=== PATIENT | female | born 1995 | race Caucasian/White ===

== ENCOUNTER 2023-10-03 08:00 | Outpatient (CLI) | payer OTHER ==
[2023-10-03 16:31] LABS: BILIRUBIN,URINE NEGATIVE (NEGATIVE); GLUCOSE, URINE (UA) NEGATIVE (NEGATIVE); KETONES,URINE (UA) NEGATIVE (NEGATIVE); LEUKOCYTE ESTERASE, URINE NEGATIVE (NEGATIVE); NITRITE,URINE NEGATIVE (NEGATIVE); OCCULT BLOOD,URINE NEGATIVE (NEGATIVE); PROTEIN,URINE NEGATIVE (NEGATIVE); UROBILINOGEN,URINE 0.2 (NORMAL) E.U./dL (NORMAL)
[2023-10-03 16:43] LABS: BACTERIA,URINE Moderate /HPF (None Seen); CLARITY,URINE CLEAR (CLEAR); RBC,URINE None Seen /HPF (0-5); SQUAMOUS EPITHELIAL CELL,UR FEW Squamous (<= Few); WBC,URINE 0-3 /HPF (0-5)
== END 2023-10-03 23:59 | disposition home or self-care (01) ==
LOC: LAB.WC 08:00
PROVIDERS: ATTEND Obstetrics & Gynecology
DX: Z34.90 Encounter for supervision of normal pregnancy, unspecified, unspecified trimester (principal)
CPT/HCPCS: 81001; 87086; 87181

== ENCOUNTER 2023-10-07 13:12 | Outpatient (CLI) | payer OTHER ==
[2023-10-07 13:34] LABS: BASOPHILS # (AUTO) 0.1 10^3/uL (0.0-0.1); BASOPHILS % (AUTO) 0.6 %; EOSINOPHILS # (AUTO) 0.1 10^3/uL (0.0-0.7); EOSINOPHILS % (AUTO) 1.3 %; HCT - HEMATOCRIT 38.8 % (37.0-47.0); HGB - HEMOGLOBIN 12.8 g/dL (12.0-16.0); LYMPHOCYTES # (AUTO) 1.4 10^3/uL (1.5-3.5); LYMPHOCYTES % (AUTO) 16.8 %; MEAN CORPUSCULAR HEMOGLOBIN 29.4 pg (27.0-31.0); MEAN CORPUSCULAR VOLUME 89.2 fL (81.0-99.0); MEAN PLATELET VOLUME 9.5 fL (7.9-10.8); MONOCYTES # (AUTO) 0.5 10^3/uL (0.0-1.0); MONOCYTES % (AUTO) 5.5 %; NEUTROPHILS # (AUTO) 6.4 10^3/uL (1.5-6.6); NEUTROPHILS % (AUTO) 75.6 %; PLT - PLATELET COUNT 228 10^3/uL (130-450); RED BLOOD COUNT 4.35 10^6/uL (4.20-5.40); RED CELL DISTRIBUTION WIDTH 13.2 % (12.0-15.0); WHITE BLOOD COUNT 8.5 x10^3/uL (4.8-10.8)
[2023-10-08 05:12] LABS: HBsAG SCREEN Negative (Negative); HCV AB Non Reactive (Non Reactive); HIV SCREEN 4TH GENERATION Non Reactive (Non Reactive)
[2023-10-08 08:10] LABS: RPR Non Reactive (Non Reactive)
[2023-10-08 09:09] LABS: VARICELLA-ZOSTER AB IGG 3947 index (Immune >165)
== END 2023-10-07 13:13 | disposition home or self-care (01) ==
LOC: LAB 13:12
PROVIDERS: ATTEND Obstetrics & Gynecology
DX: Z34.90 Encounter for supervision of normal pregnancy, unspecified, unspecified trimester (principal)
CPT/HCPCS: 36415; 85025; 86592; 86762; 86787; 86803; 86850; 86900; 86901; 87340; 87389

== ENCOUNTER 2023-10-17 12:34 | Outpatient (CLI) | payer OTHER ==
--- NOTE | 2023-10-17 14:30 | Ultrasound Report ---
PROCEDURE: OB First Trimester INDICATIONS: POSITIVE TEST OUTSIDE/PRIOR DATING DATA: Last menstrual period (LMP): 08/15/2023. LMP-based estimated date of delivery (RAYRAY): 05/11/2024. First dating scan (date and location): 10/17/2023. Estimated date of delivery (RAYRAY) from first dating scan: 05/22/2024. TECHNIQUE: Real-time scanning was performed of the fetus and maternal pelvic organs, with image documentation. COMPARISON: None. FINDINGS: Intrauterine gestational sac present. Embryo: Shaw-rump length measures 2.16 cm, consistent with 8 weeks and 6 days. Heart rate: 167 bpm. Other: No perigestational fluid collection. Yolk sac is present. Measurement variability in dating: +/- 4 weeks by LMP, +/- 7 days by mean sac diameter (use before 6 weeks gestation if crown-rump length not able to be measured), +/- 5 days by crown-rump length (6-12 weeks gestation). Maternal organs: Left ovary is not seen.. Right ovary corpus luteal cyst measuring 1.5 cm. IMPRESSION: Single live intrauterine consistent with 8 weeks and 6 days. Reviewed by: Robert Acevedo MD on 10/17/2023 2:28 PM PST Approved by: Robert Acevedo MD on 10/17/2023 2:28 PM PST Station ID: [id number]
== END 2023-10-17 12:35 | disposition home or self-care (01) ==
LOC: DI 12:34
PROVIDERS: ATTEND Obstetrics & Gynecology
DX: Z34.91 Encounter for supervision of normal pregnancy, unspecified, first trimester (principal)

== ENCOUNTER 2023-11-07 08:00 | Outpatient (CLI) | payer OTHER ==
[2023-11-07 19:47] LABS: CHLAMYDIA TRACHOMATIS DNA NEGATIVE (NEGATIVE); NEISSERIA GONORRHOEAE DNA NEGATIVE (NEGATIVE); TRICHOMONAS VAGINALIS DNA NEGATIVE (NEGATIVE)
== END 2023-11-07 23:59 | disposition home or self-care (01) ==
LOC: LAB.WC 08:00
PROVIDERS: ATTEND Obstetrics & Gynecology
DX: Z11.3 Encounter for screening for infections with a predominantly sexual mode of transmission (principal)
CPT/HCPCS: 87491; 87591; 87661

== ENCOUNTER 2023-11-14 08:00 | Outpatient (CLI) | payer OTHER ==
[2023-11-14 18:41] LABS: BILIRUBIN,URINE NEGATIVE (NEGATIVE); GLUCOSE, URINE (UA) NEGATIVE (NEGATIVE); KETONES,URINE (UA) NEGATIVE (NEGATIVE); LEUKOCYTE ESTERASE, URINE NEGATIVE (NEGATIVE); NITRITE,URINE NEGATIVE (NEGATIVE); OCCULT BLOOD,URINE TRACE-INTA (NEGATIVE); PROTEIN,URINE NEGATIVE (NEGATIVE); UROBILINOGEN,URINE 0.2 (NORMAL) E.U./dL (NORMAL)
[2023-11-14 19:24] LABS: CLARITY,URINE CLEAR (CLEAR)
[2023-11-14 19:25] LABS: BACTERIA,URINE Rare /HPF (None Seen); RBC,URINE 0-5 /HPF (0-5); SQUAMOUS EPITHELIAL CELL,UR RARE Squamous (<= Few); WBC,URINE 0-3 /HPF (0-5)
== END 2023-11-14 23:59 | disposition home or self-care (01) ==
LOC: LAB.WC 08:00
PROVIDERS: ATTEND Nurse Practitioner
DX: R82.90 Unspecified abnormal findings in urine (principal)
CPT/HCPCS: 81001; 87086

== ENCOUNTER 2024-02-28 10:00 | Outpatient (CLI) | payer OTHER ==
[2024-02-28 11:10] LABS: HCT - HEMATOCRIT 36.3 % (37.0-47.0); HGB - HEMOGLOBIN 11.4 g/dL (12.0-16.0); MEAN CORPUSCULAR HEMOGLOBIN 27.3 pg (27.0-31.0); MEAN CORPUSCULAR HGB CONC 31.4 g/dL (32.0-36.0); MEAN CORPUSCULAR VOLUME 87.1 fL (81.0-99.0); MEAN PLATELET VOLUME 9.6 fL (7.9-10.8); RED BLOOD COUNT 4.17 10^6/uL (4.20-5.40); RED CELL DISTRIBUTION WIDTH 12.5 % (12.0-15.0); WHITE BLOOD COUNT 8.1 x10^3/uL (4.8-10.8)
== END 2024-02-28 10:01 | disposition home or self-care (01) ==
LOC: LAB 10:00
PROVIDERS: ATTEND Obstetrics & Gynecology
DX: Z34.90 Encounter for supervision of normal pregnancy, unspecified, unspecified trimester (principal)
CPT/HCPCS: 36415; 82950; 85027

== ENCOUNTER 2024-04-08 09:59 | Outpatient (CLI) | payer OTHER ==
--- NOTE | 2024-04-09 07:11 | Ultrasound Report ---
PROCEDURE: OB Follow up INDICATIONS: UTERINE SIZE DATE DISCREPENCY OUTSIDE/PRIOR DATING DATA: Last menstrual period (LMP): 08/15/2023. LMP-based estimated date of delivery (RAYRAY): 05/11/2024. First dating scan (date and location): 10/17/2023 . Estimated date of delivery (RAYRAY) from first dating scan: 05/22/2024. The below data below was generated using the ultrasound RAYRAY of 05/22/2024 TECHNIQUE: Real-time scanning was performed of the fetus, with image documentation and biometric measurements. Endovaginal scanning: Not performed. COMPARISON: OB ultrasound 01/07/2024, 10/17/2023 FINDINGS: General: A single living intrauterine gestation is present. Presentation: Vertex Placenta: Placental position is posterior, without previa. Amniotic fluid index: 13.7 cm, within normal limits for gestational age. heart rate: 148 beats per minute. Maternal cervical canal: 5.8 cm long; normal length is 2.5 cm or more. biometrics: Biparietal diameter: 8.2 cm Head circumference: 29.6 cm Abdominal circumference: 29.7 cm Femur length: 6.1 cm Estimated gestational age from initial scan: 33 weeks, 5 days Composite gestational age from present scan: 33 weeks, 0 days Estimated weight and percentile: 2112.8 g, 24.5 percentile Measurement variability in biometric dating: +/- 10 days from 12-20 weeks gestation, +/- 2 weeks from 20-30 weeks gestation, +/- 3 weeks at 30 weeks gestation or more. Other: Not applicable. IMPRESSION: Single intrauterine gestation in vertex presentation with estimated gestational age of 33 weeks, 0 da ys based on biometry. Estimated weight and 24.5 percentile Reviewed by: Shirley Rasheed MD, PhD on 04/09/2024 7:09 AM PDT Approved by: Shirley Rasheed MD, PhD on 04/09/2024 7:09 AM PDT Station ID: [id number]
== END 2024-04-08 10:00 | disposition home or self-care (01) ==
LOC: DI 09:59
PROVIDERS: ATTEND Obstetrics & Gynecology
DX: O26.843 Uterine size-date discrepancy, third trimester (principal); Z3A.33 33 weeks gestation of pregnancy

== ENCOUNTER 2024-04-23 08:00 | Outpatient (CLI) | payer OTHER | END 2024-04-23 23:59 | disposition home or self-care (01) | LOC: LAB.WC 08:00 | PROVIDERS: ATTEND Nurse Practitioner | DX: Z36.85 Encounter for antenatal screening for Streptococcus B (principal) | CPT/HCPCS: 87081; 87181; 87797 ==

== ENCOUNTER 2024-05-15 15:32 | Inpatient (IN) | payer OTHER ==
[2024-05-15 16:29] LABS: BASOPHILS % (AUTO) 0.3 %; EOSINOPHILS # (AUTO) 0.1 10^3/uL (0.0-0.7); EOSINOPHILS % (AUTO) 1.1 %; HCT - HEMATOCRIT 34.7 % (37.0-47.0); HGB - HEMOGLOBIN 10.7 g/dL (12.0-16.0); LYMPHOCYTES # (AUTO) 1.9 10^3/uL (1.5-3.5); LYMPHOCYTES % (AUTO) 19.8 %; MEAN CORPUSCULAR HGB CONC 30.8 g/dL (32.0-36.0); MEAN PLATELET VOLUME 10.2 fL (7.9-10.8); MONOCYTES # (AUTO) 0.5 10^3/uL (0.0-1.0); MONOCYTES % (AUTO) 5.5 %; NEUTROPHILS # (AUTO) 6.8 10^3/uL (1.5-6.6); PLT - PLATELET COUNT 291 10^3/uL (130-450); RED BLOOD COUNT 4.45 10^6/uL (4.20-5.40); RED CELL DISTRIBUTION WIDTH 14.1 % (12.0-15.0); WHITE BLOOD COUNT 9.3 x10^3/uL (4.8-10.8)
[2024-05-15] MEDS: miSOPROStoL 100 MCG TABLET VG SCH (17:09)
[2024-05-15] MEDS ORDERED: TRANEXAMIC ACID IN NACL 1,000 MG/100 ML BAG IV PRN (18:08)
[2024-05-15] MEDS ORDERED: miSOPROStoL 200 MCG TABLET BC PRN (18:08)
[2024-05-15] MEDS ORDERED: OXYTOCIN/SODIUM CHLORIDE 500 ML IV PRN (18:08)
[2024-05-15] MEDS ORDERED: METHYLERGONOVINE 0.2 MG/ML VIAL IM PRN (18:08)
[2024-05-15] MEDS ORDERED: ONDANSETRON 4 MG/2 ML VIAL IVP PRN ×2 (18:08→19:45)
[2024-05-15] MEDS ORDERED: lidocaine 1% 20 ML MDV ID PRN (18:08)
[2024-05-15] MEDS ORDERED: SODIUM CHLORIDE FLUSH 0.9% 10 ML SYRINGE IVP PRN (18:08)
[2024-05-15] MEDS ORDERED: OXYTOCIN 10 UNIT/ML VIAL IM PRN (18:08)
[2024-05-15] MEDS ORDERED: CARBOPROST TROMETHAMINE 250 MCG/ML VIAL IM PRN (18:08)
--- NOTE | 2024-05-15 18:34 | HISTORY & PHYSICAL EXAMINATION ---
Admit History - Visit Reason Visit Reason: Other (Term gestation, elective induction of labor) - : 3 Parity: 2 Premature: 0 Ectopic: 0 : 0 Care: positive: [facility] Risk/History: positive: None Complications This : positive: None Smoking Status: Never smoker - Mother's Labs Mother's Blood Type: positive: A Mother's RH: positive: Positive GBS: positive: Group B Strep Positive Rubella Status: positive: Immune - Other Maternal History Other Maternal History: HPI: This 29 yo @ 39+1 weeks by LMP and confirmed by 8+6 week ultrasound. She desires elective induction of labor. She has been a patient of [facility] for the duration of her . Her which has remained uncomplicated with the exception of mild anemia. Denies Headache, visual changes or right upper quadrant abdominal pain. Denies urinary urgency or dysuria. Denies any nausea or vomiting. ROS: All other symptoms reviewed and were negative except per HPI. LMP: 08/15/2023 RAYRAY by LMP: 05/11/2024 Initial US Date 10/17/2023, US Age 8 weeks 6 days, RAYRAY by ultrasound: 05/22/2023 Final RAYRAY: 05/22/2024 by 8-week ultrasound serial Exams agree OB Hx: G1: Delivery date: 03/21/2014 Weeks Gestation: 40.4 Delivery type: Sex: Male weight: [id number] G2: Delivery date: 12/22/2017 Weeks Gestation: 39.3 Delivery type: Sex: Male weight: [id number] Medical Hx: No significant Surgical Hx: None Social Hx: Monogamous with male partner.. Denies current use of alcohol, tobacco, marijuana or other recreational drugs. Family Hx: Denies family history of congenital anomalies, Cystic Fibrosis or chromosomal abnormalities Recent BP: 136/76 Lab: H&H 10.7/34.7% Total maternal weight gain: 34.4# Yasp-hgou-ozyz-Dates: -04/08/2024 us: 2112.8 g, 24.5 percentile Pre- Weight:143 BMI: 26.25 Blood type: A+ Antibody: Negative CBC: H/H: 12.8/38.8, platelets: 228 RUB:Immune VZV: immune HBsAg: negative HepC: Non-reactive RPR/AB-EIA:on-reactive HIV:on-reactive PAP:08/07/23 Normal GC/CT: negative HSV: Denies in self and partner Genetic testing: Declined Covid: Declined Flu: Declined FAS Placenta:posterior w/o previa Cord: 3VC YOLI: Normal EFW: 356g 24th%ile 50gm OGCT: 123 TDAP:Declined 02/26 Breast Pump:02/26 3rd trimester H/H 11.4/36.3 PLT 231 GBS: 04/23/2024 - POSITIVE Physical exam: Normocephalic, atraumatic Heart RRR w/o M/G/R Lungs CTAB Abdomen gravid, soft, nontender. EFW 3400 FHR baseline 130's, moderate variability, + accelerations, no decelerations Single contraction palpated, mildly, soft resting tone Difficult cervical exam, likely unchanged from clinic 05/13/2024 appointment: 050/-3 posterior, intact membranes. Bilateral LE's no edema Mood is good. Assessment: 29 yo @ 39+1 weeks gestation by 8+6 wk U/S Desires elective induction of labor. FHR 130's, Cat I GBS Positive Plan: Admit to [facility] for elective induction of labor at 39+1 weeks gestation. Will begin with cervical ripening, misoprostol Begin GBS prophylaxis- ampicillin. Continuous monitoring Jacuzzi PRN. Nitrous oxide PRN. Epidural PRN Maternal Request. Anticipate . 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 (Radha Huntley) - HPI Current EDU 05/21/24 Gestation 39 Weeks and 1 Days 3 Vital Signs Temperature 97.9 F 05/15/24 15:57 Heart Rate 98 05/15/24 15:57 Respiratory Rate 16 05/15/24 15:57 Blood Pressure 136/76 H 05/15/24 15:57 Temperature 97.9 F 05/15/24 15:57 Heart Rate 98 05/15/24 15:57 Respiratory Rate 16 05/15/24 15:57 Blood Pressure 136/76 H 05/15/24 15:57 O2 Saturation If not protocol: Oxygen Flow, liters/minute Meds/Allgy - Home Medications Home Medications: Ambulatory Orders Medication Instructions Recorded Confirmed Vit No.129/Iron/Folic 1 each PO ONCE 05/15/24 05/15/24 [ Tablet] - Allergies Allergies/Adverse Reactions: Allergies Allergy/AdvReac Type Severity Reaction Status Date / Time No Known Drug Allergies Allergy Verified 05/15/24 18:55 Physical - Abdominal Exam Vital Signs: Temp Pulse Resp BP Pulse Ox O2 Flow Rate 97.9 F 98 16 136/76 H 05/15/24 15:57 05/15/24 15:57 05/15/24 15:57 05/15/24 15:57 Plan for Labor - Plan For Labor I expect patient to be DC'd or transferred within 96 hours.: Yes - Plan For Labor Plan for Labor: agree with Above. Miso for induction. anticipate . I have evaluated patient as well and reviewed and signed consents with her for labor induction. my cervical exam at 5 pm - I could not reach the cervix. (Milana Vaz)
[2024-05-15] MEDS: AMPICILLIN 2 GM in SODIUM CHLORIDE 0.9% MINIBAG 100 ML IV ONE (18:41)
[2024-05-15] MEDS: LACTATED RINGERS 1,000 ML IV SCH (18:45)
[2024-05-15] MEDS ORDERED: NALBUPHINE 10 MG/ML AMP IVP PRN (19:45)
[2024-05-15] MEDS ORDERED: METOCLOPRAMIDE 10 MG/2 ML VIAL IVP PRN (19:45)
[2024-05-15] MEDS ORDERED: diphenhydrAMINE INJ 50 MG/ML VIAL IVP PRN (19:45)
[2024-05-15] MEDS ORDERED: NALOXONE 0.4 MG/ML VIAL IVP PRN (19:45)
[2024-05-15] MEDS ORDERED: ROPIVACAINE 0.2% 200 MG/100 ML BAG EP PRN (19:45)
--- NOTE | 2024-05-15 19:45 | ANESTHESIA ---
Pre-Anesthesia VS, & Labs - Diagnosis labor pain - Procedure labor epidural Vital Signs: Temp Pulse Resp BP Pulse Ox O2 Flow Rate 36.6 C 98 16 136/76 H 05/15/24 15:57 05/15/24 15:57 05/15/24 15:57 05/15/24 15:57 Height: 5 ft 2 in Weight (kg): 79.379 kg Body Mass Index: 32.0 BMI Classification: Obese - NPO Other - Is Patient ?: Yes - Lab Results Current Lab Results: Laboratory Tests 05/15/24 16:15: WBC 9.3, RBC 4.45, Hgb 10.7 L, Hct 34.7 L, MCV 78.0 L, MCH 24.0 L, MCHC 30.8 L, RDW 14.1, Plt Count 291, MPV 10.2, Neut # (Auto) 6.8 H, Lymph # (Auto) 1.9, [place] # (Auto) 0.5, Eos # (Auto) 0.1, Baso # (Auto) 0.0, Absolute Nucleated RBC 0.00, Nucleated RBC % 0.0 05/15/24 16:15: Blood Type A POSITIVE, Antibody Screen NEGATIVE Fish Bones: 05/15/24 16:15 Home Medications and Allergies Home Medications: Ambulatory Orders Vit No.129/Iron/Folic [ Tablet] 1 each PO ONCE 05/15/24 Active Medications Carboprost Tromethamine (Carboprost Tromethamine 250 Mcg/Ml Vial) 250 mcg IM Q 15M PRN PRN Reason: Step 4: Hemorrhage protocol Lactated Ringer's (Lr) 1,000 mls @ 100 mls/hr IV .Q10H NANY Last Admin: 05/15/24 18:45 Dose: 100 mls/hr Oxytocin/Sodium Chloride (Pitocin/Sodium Chloride) 500 mls @ 999 mls/hr IV PRN PRN; Protocol PRN Reason: POST- HEMORR PREVENTION Stop: 05/20/24 18:09 Tranexamic Acid (Tranexamic 1,000 Mg/100ml-Nacl) 1,000 mg in 100 mls @ 600 mls/hr IV .ONCE PRN PRN Reason: EBL >1200mL and within 3hr Stop: 05/20/24 18:09 Ampicillin Sodium 1 gm/ Sodium (Chloride) 100 mls @ 200 mls/hr IV Q4H [facility] Lidocaine HCl (Lidocaine 1% 20 Ml Mdv) 20 ml ID .ONCE PRN PRN Reason: PERINEAL REPAIR Stop: 05/20/24 18:09 Methylergonovine Maleate (Methylergonovine 0.2 Mg/Ml Vial) 0.2 mg IM .ONCE PRN PRN Reason: Step 2: Hemorrhage protocol Stop: 05/20/24 18:09 Misoprostol (Misoprostol 100 Mcg Tablet) 25 mcg VG Q4H NANY Last Admin: 05/15/24 17:09 Dose: 25 mcg Misoprostol (Misoprostol 200 Mcg Tablet) 800 mcg BC .ONCE PRN PRN Reason: Step 3: Hemorrhage protocol Stop: 05/20/24 18:09 Ondansetron HCl (Ondansetron 4 Mg/2 Ml Vial) 4 mg IVP Q4HR PRN PRN Reason: Nausea / Vomiting Oxytocin (Oxytocin 10 Unit/Ml Vial) 10 unit IM .ONCE PRN PRN Reason: Step one: If no IV access Stop: 05/20/24 18:09 Sodium Chloride (Sodium Chloride Flush 0.9% 10 Ml Syringe) 10 ml IVP 0100,0900,1700 [facility] Sodium Chloride (Sodium Chloride Flush 0.9% 10 Ml Syringe) 10 ml IVP PRN PRN PRN Reason: NEEDED PER PROVIDER ORDERS Vit No.129/Iron/Folic [ Tablet] 1 each PO ONCE 05/15/24 Allergies/Adverse Reactions: Allergies Allergy/AdvReac Type Severity Reaction Status Date / Time No Known Drug Allergies Allergy Verified 05/15/24 18:55 Anes History & Medical History - Anesthetic History Anesthesia Complications: reports: No previous complications Family history of Anesthesia Complications: Denies Family history of Malignant Hyperthermia: Denies - Medical History Cardiovascular: reports: None Pulmonary: reports: None Smoking Status: Never smoker - Obstetrical History : 3 Parity: 2 Events: reports: None Complications: reports: None Exam General: Alert, Oriented x3, Cooperative Dental: WNL Mouth Openin Fingerbreadth Neck Mobility: Normal Mallampati classification: II Thyromental Distance: 4-6 cm Respiratory: Lungs clear Cardiovascular: Regular rate Plan Anesthesia Type: Epidural Consent for Procedure(s) Verified and Reviewed: Yes Code Status: Attempt Resuscitation ASA classification: 2-Mild systemic disease Is this case an emergency?: No
[2024-05-15] MEDS: AMPICILLIN 1 GM in SODIUM CHLORIDE 0.9% MINIBAG 100 ML IV SCH (23:10)
[2024-05-16] MEDS: OXYTOCIN/SODIUM CHLORIDE 500 ML IV SCH (00:45)
[2024-05-16] MEDS ORDERED: SODIUM CHLORIDE FLUSH 0.9% 10 ML SYRINGE IVP SCH (01:00)
[2024-05-16] MEDS ORDERED: LIDOCAINE 2%-EPI 1:100000 20 ML MDV ONE (05:46)
--- NOTE | 2024-05-16 06:32 | PROVIDER PROGRESS NOTE ---
<Radha Huntley - Last Filed: 05/16/24 06:32> Labor Progress Note - Uterine Monitoring Uterine Monitoring Mode: positive: External toco Contraction Frequency (min/apart): q2-4 Contraction Intensity: positive: Moderate to strong Uterine Resting Tone: positive: Soft - Monitoring Monitor Mode: positive: External ultrasound Heart Rate Baseline: 140's Heart Rate Variability: positive: Moderate (6-25 bmp) Accelerations: positive: Present, 15x15 Decelerations: positive: None Strip Review: positive: Category I - Labor Progress Note Labor Progress Note/Additional Text: S: Just received epidural. Comfort now increasing. Mood is good. Feels well informed. supportive at bedside . O: FHR 140s, + accelerations, - significant decelerations thomas q 2-3 minutes, moderate, resting tone soft. Oxytocin @ 8mu/min Recent SVE by RN, essentially unchanged from previous exam (1.5cm, posterior) A: 29 yo @ 39+ 2 Ongoing term elective induction of labor. S/P misoprosol x1 for cervical ripening immediately s/p epidural placement GBS positive, prophylaxis ongoing. P: Continue to titrate oxytocin for adequate labor pattern Continue ampicillin for GBS prophylaxis per protocol. maintain epidural Will encouraged RN assisted positional changes in bed on peanut ball Anticipate . MARTA Cotton, Student Nurse Cyber Incident Handler <Milana Vaz - Last Filed: 05/16/24 18:37> Labor Progress Note - Labor Progress Note Labor Progress Note/Additional Text: agree with above.
--- NOTE | 2024-05-16 08:47 | PROVIDER PROGRESS NOTE ---
Subjective - Subjective Subjective: comfortable with epidural but not thomas much at all now. Pitocin at 12 Objective - Vital Signs/Intake & Output Reviewed Vital Signs: Yes Vital Signs: FHT category 1 Intake & Output: Intake & Output 05/13/24 05/14/24 05/15/24 05/16/24 23:59 23:59 23:59 23:59 Intake Total 100 1283.199 Balance 100 1283.199 - Objective General Appearance: positive: No acute distress Abdomen: positive: Non-tender Comments/Other: cervix 60/-3 still pretty firm - Lab Results Fish Bones: 05/15/24 16:15 Other Labs: Lab Results x24hrs 05/15/24 05/15/24 Range/Units 16:15 16:15 WBC 9.3 (4.8-10.8) x10^3/uL RBC 4.45 (4.20-5.40) 10^6/uL Hgb 10.7 L (12.0-16.0) g/dL Hct 34.7 L (37.0-47.0) % MCV 78.0 L (81.0-99.0) fL MCH 24.0 L (27.0-31.0) pg MCHC 30.8 L (32.0-36.0) g/dL RDW 14.1 (12.0-15.0) % Plt Count 291 (130-450) 10^3/uL MPV 10.2 (7.9-10.8) fL Neut # (Auto) 6.8 H (1.5-6.6) 10^3/uL Lymph # (Auto) 1.9 (1.5-3.5) 10^3/uL [place] # (Auto) 0.5 (0.0-1.0) 10^3/uL Eos # (Auto) 0.1 (0.0-0.7) 10^3/uL Baso # (Auto) 0.0 (0.0-0.1) 10^3/uL Absolute Nucleated RBC 0.00 x10^3/uL Nucleated RBC % 0.0 /100WBC Blood Type A POSITIVE Antibody Screen NEGATIVE Assessment/Plan - Problem List (1) Encounter for elective induction of labor Impression: still not really in labor. comfortable with epidural. AROM done and clear fluid. will increase pitocin as needed. baby is reassuring
[2024-05-16] MEDS: ePHEDrine 50 MG/ML VIAL IVP PRN (09:30)
--- NOTE | 2024-05-16 10:01 | PROVIDER PROGRESS NOTE ---
Labor Progress Note - Uterine Monitoring Uterine Monitoring Mode: positive: External toco Contraction Frequency (min/apart): 2-2.5 Contraction Intensity: positive: Strong Uterine Resting Tone: positive: Soft - Monitoring Monitor Mode: positive: Spiral electrode Heart Rate Baseline: 120 Heart Rate Variability: positive: Moderate (6-25 bmp) Accelerations: positive: Present, 15x15 Decelerations: positive: Early, Prolonged (>2x10 min) Strip Review: positive: Category II - Vaginal Exam Dilation (in cm): 7 Effacement (%): 100 Station: 1 - Labor Progress Note Labor Progress Note/Additional Text: S: Nursing team at bedside following prolonged FHR deceleration following hypotensive event. Difficulty tracing heart rate vs maternal heart rate. Patient verbally consents to FSE placement. O: FHR baseline 120, min-moderate variability, + accels, early and prolonged decelerations. 10 minute period or prolonged heart rate declerations to the 80's/90's. Intrauterine resuscitative measures by RN team. Dr. Vaz called to bedside. Contractions palpate mild intermittently with soft resting tone. SVE 7/100/+1, Vertex. Membranes ruptured/clear. S/p misoprostol x1 dose Oxytocin now at at 14mu/min. A: 29yo @ 39+2wks gestation by 1st trimester ultrasound. Elective IOL FSE placed secondary to prolonged deceleration and maternal vs heart tracing. rapid change to cervical dilation and advancing station FHR 120, Category II GBS, positive P: Continue oxytocin titration to achieve adequate uterine activity. Continuous monitoring. maintain epidural for maternal labor anesthesia. encourage rotations in bed on [employer] ball Reviewed plan of care with oncall physician Anticipate soon. MARTA Cotton, Student Nurse Correspondence Analyst
[2024-05-16] MEDS ORDERED: WITCH HAZEL/GLYCERIN 1 PAD TOP PRN (11:12)
[2024-05-16] MEDS ORDERED: HYDROCORTISONE 1% CREAM 28 GM TUBE PR PRN (11:12)
--- NOTE | 2024-05-16 11:19 | DELIVERY NOTE ---
<Radha Huntley - Last Filed: 05/16/24 11:56> Delivery Note - Labor Labor: positive: Augmented by ARM, Induced by oxytocin - Delivery Method Infant Delivery Method: positive: Spontaneous vaginal delivery - Cervical Ripening Method Cervical Ripening Method: positive: Misoprostil - Presentation Presentation: positive: Vertex, NILO - right occiput anterior - Nuchal Cord Nuchal Cord: positive: None - Anesthetic Anesthetic Type: - Amniotic Fluid Description Amniotic Fluid Description: positive: Clear - Episiotomy Type Episiotomy Type: positive: None - Laceration Laceration: positive: None - Delivery Outcome Delivery Outcome: positive: Livebirth - Jackhorn Jackhorn: positive: Placed in direct skin contact with mother, Bulb syringe, Stimulated, Warmed, Everetts used Jackhorn sex: positive: Male - Cord Cord: positive: 3 vessels - Placenta Placenta: positive: Intact - Estimated Blood Loss Estimated Blood Loss (in cc): 250 - Post Delivery Events Post Delivery Events: positive: No post delivery events - Delivery Comments (Free Text/Narrative) Delivery Comments (Free Text/Narrative): This 29 -year-old, G 3P 2 @ 39+2 weeks gestation by sure LMP and confirmed by 8+6 week ultrasound presented to L&D yesterday late afternoon for elective induction at term gestation. At the time of her admission her cervix was posterior and unreachable. GBS positive, treated x 4 doses. Induction began with cervical ripening MISOPROSTOL 50 mcg BC, followed by OXYTOCIN (MAXIMUM INFUSION OF 14 mu/Min) and AROM @0830 (clear). FHR pattern demonstrated primarily category I tracing (with intermittent category II) and FHT 120's baseline prior to second stage. Rapid dilation and descent after AROM. Epidural placed upon maternal request. She then progressed to complete/complete and second stage began at 10:25. : Normal spontaneous vaginal delivery of a viable male infant on 05/16/2024 @ 1054. No nuchal cord. The was placed on maternal abdomen, stimulated, dried and placed skin to skin. Apgars 8 @ 1 min, and 9 @ 5 minutes. The umbilical cord was allowed to stop pulsating at which time it was doubly clamped by delivering provider and cut by FOB. 3VC. Cord blood was obtained. Third Stage: Fundal massage and gently cord traction applied for active management of the third stage, placenta delivered spontaneously and intact @ 11:00. EBL 250cc. Placenta was WAS NOT sent to pathology. 30u Pitocin administered via IV for hemostasis and allowed to run freely. Uterine massage wa s performed until uterus was deemed firm. Fourth stage: Uterine fundus firm and there is no excessive bleeding. The perineum, vagina and cervix were inspected and found to be intact. Family bonding well. Both mother and baby are in stable condition. 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 MARTA Cotton, Student Nurse Global Marketing Specialist <Milana Vaz - Last Filed: 05/16/24 18:36> Delivery Note - Delivery Comments (Free Text/Narrative) Delivery Comments (Free Text/Narrative): I was present with Radha for delivery of Elizabeth's baby. I agree with above except that she had misoprostol 25 mcg vaginally.
[2024-05-16] MEDS: IBUPROFEN 800 MG TABLET PO SCH (12:21)
[2024-05-16] MEDS: ACETAMINOPHEN 500 MG TABLET PO SCH (12:21)
[2024-05-17 05:00] VITALS: BP 96/57; O2SAT 98
--- NOTE | 2024-05-17 11:45 | DISCHARGE SUMMARY ---
<Radha Huntley - Last Filed: 05/17/24 13:08> Discharge Summary Admit Date: 05/15/24 Discharge Date: 05/17/24 Discharging Provider: Dr. Vaz Code Status: Attempt Resuscitation Condition at Discharge: Good Discharge Disposition: 01 Home, Self Care - HOSPITAL COURSE Hospital Course: Date of Admission: 05/15/2024 Date of Discharge: 05/17/2024 Diagnosis on admission: 1. 29 -year-old, G 3P 2 @ 39+2 weeks gestation by sure LMP and confirmed by 8+6 week ultrasound 2. Elective induction of labor 3. GBS positive Diagnosis on Discharge 1. 29 year old, 2. S/P vaginal delivery 3. PP day #1 4. Intact perineum 5. Exclusively Brief History: She is a patient of [facility] who presented on 05/15/2024 for elective induction of labor. She has been a patient of [facility] for the duration of her course. She spontaneously delivered a viable female apgars 8 and 9 at 1 and 5 minutes respectively. EBL 250 ml. intact perineum. She has been doing well in her course. She is ambulating and tolerating a regular diet. She is urinating without difficulty and her lochia is normal. Her pain is well controlled without narcotic management. She will be discharged to home today on day 1 and encouraged to continue PRN IBU, tylenol and colace. Will ask clinic to call and have Elizabeth scheduled for follow-up by phone for 1 week visit. She has been given precautions to call if she has any any new or worsening sx such as fevers, chills, abdominal pain, increasing bleeding, or foul smelling vaginal lochia. preeclamptic precautions reviewed as well. MARTA Cotton, Student Nurse Supervisor [address] - ALLERGIES Allergies/Adverse Reactions: Allergies Allergy/AdvReac Type Severity Reaction Status Date / Time No Known Drug Allergies Allergy Verified 05/15/24 18:55 - MEDICATIONS Home Medications: Ambulatory Orders Medication Instructions Recorded Confirmed Vit No.129/Iron/Folic 1 each PO ONCE 05/15/24 05/15/24 [ Tablet] - PHYSICAL EXAM AT DISCHARGE General Appearance: positive: No acute distress Eyes Bilateral: positive: Normal inspection Respiratory: positive: No respiratory distress Peripheral Pulses: positive: 2+ Abdomen: positive: Non-tender Skin: positive: Color nml Extremities: positive: Non-tender Neurologic/Psychiatric: positive: Oriented x3 - LABS Result Diagrams: 05/15/24 16:15 - QUALITY (Female Hip Fx Only) Was patient sent home on osteoporosis medication?: No - FOLLOW UP Follow Up: 1 week telehealth with [facility]. <Milana Vaz - Last Filed: 05/17/24 21:36> Discharge Summary - LABS Result Diagrams: 05/15/24 16:15 - FOLLOW UP Follow Up: Agree with above. I saw and examined patient with Radha. JONA
--- NOTE | 2024-05-17 11:47 | Discharge Plan ---
Discharge Plan Problem Reviewed?: Yes Disposition: Home, Self Care Activity Restrictions: No Restrictions Instruction Topics: Breastfeed How To, Self Care, Vaginal Additional Instructions or Follow Up instructions: Follow-up one week with [facility]. No Smoking: If you smoke, Please STOP! Call for help. Follow-up with: Milana Vaz MD [Provider Admit Priv/Credential] -
--- NOTE | 2024-05-17 14:48 | Labor Flowsheet ---
Labor Flowsheet Datetime Report Generated by CPN: 05/17/2024 14:47 Datetime: 05/17/2024 08:46 VITAL SIGNS NBP Sys/Daysi/Mean (mmHg): 115 : 68 : 77 Pulse: 89 Datetime: 05/16/2024 13:00 Stage of : Datetime: 05/16/2024 12:15 Respirations: 16 Datetime: 05/16/2024 11:22 Temperature (C): 36.8 Temperature Route: Oral Datetime: 05/16/2024 11:11 LaborFlag: Labor Datetime: 05/16/2024 10:55 SpO2 (%): 97 Datetime: 05/16/2024 10:50 UTERINE ACTIVITY Monitor Mode: External Monitor Interventions for UA: [place] Adjusted Datetime: 05/16/2024 09:51 Comments: FSE replaced VAGINAL EXAM Dilatation (cm): 7.0 Effacement (%): 100 Station: 1 Exam by: Dr. Vaz Datetime: 05/16/2024 09:49 Strip Reviewed by: Dr. Vaz Provider Notified (Name): Dr. Vaz Communication Comments: Dr. Vaz at bedside Datetime: 05/16/2024 09:47 Monitor Interventions for FHR: FSE Applied Datetime: 05/16/2024 09:42 Actions for Decelerations: Side to Side; IV Bolus; Blood Pressure; Provider Notified Datetime: 05/16/2024 09:39 COMMUNICATION Communication: RN at Bedside; RN Reviewed Strip; Call/Page Placed to Provider Datetime: 05/16/2024 08:01 MEDICATIONS Pitocin (milliunits): Increased to @ 12 Patient Position/Activity: Right Lateral Datetime: 05/16/2024 08:00 Frequency (min): 2-4 Quality: Moderate Duration (sec): 80-90 Pattern: Normal: <= 5 Contractions in 10 Minutes Resting Tone (Palpate): Relaxed Pitocin Checklist: At Least 1 Acceleration of 15 bpm x 15 Seconds in 30 Minutes or Adequate Variabi lity; No More than 1 Late Deceleration Occurred in Past 30 Minutes; No More than 2 Variable Decelerat ions > 60 Seconds in Duration and decreasing >60 bpm in 30 minutes; No More than 5 Uterine Contractio ns in 10 Minutes for any 20 Minute Interval; Uterus Palpates Soft between Contractions ASSESSMENT A Monitor Mode: External US FHR Baseline Rate : 120 Datetime: 05/16/2024 07:30 FHR Baseline Changes: No Baseline Change Variability: Moderate 6-25 bpm Accelerations: 15X15 Decelerations: None Datetime: 05/16/2024 06:22 Category: Category I Datetime: 05/16/2024 06:19 Pain Relief Measures: Epidural Given PATIENT CARE Oxygen Method: Room Air Datetime: 05/16/2024 06:14 Epidural Procedure Other: Pump Started Datetime: 05/16/2024 06:10 Epidural Positioning: Side Lying Datetime: 05/16/2024 06:05 Epidural Procedure: Test Dose Datetime: 05/16/2024 05:56 PROCEDURE TIME OUT Procedure Type: 0554 Datetime: 05/16/2024 05:51 Procedure Verify: Correct Patient Identity; Correct Side and Site are Marked; Accurate Procedure Co nsent Form; Agreement on Procedure to be Done; Correct Patient Position; Safety Precautions Based on Patient History or Medication Use Datetime: 05/16/2024 05:50 Patient Care Comments: sitting up for epidural Datetime: 05/16/2024 05:48 ANESTHESIA Anesthesia Plans: Epidural Datetime: 05/16/2024 05:43 Pain Presence: Intermittent Pain Type: Cramping; Contraction Pain Location: Abdomen; Back Pain Coping: Breathing Through Contractions Comfort Measures: Breathing/Relaxation; Anesthesia Notified Datetime: 05/16/2024 05:36 Notification Reason: Status Update; Pain Datetime: 05/16/2024 05:21 Anesthesia Comments: Zuly Rudd [employer] notified pt requesting epidural, order to start fluid bolu s Datetime: 05/16/2024 05:11 Pain Assessment Comments: Anaesthesia called Vaginal Bleeding: None Cervix, Consistency: Soft Cervix, Position: Midposition Datetime: 05/16/2024 04:59 Membranes Ruptured Date/Time: 05/16/2024 08:30 Amniotic Fluid Color: Clear Amniotic Fluid Amount: Moderate Amniotic Fluid Odor: Normal Datetime: 05/16/2024 03:16 Antibiotics: Ampicillin IV 1 Gm Datetime: 05/16/2024 03:15 PAIN Pain Scale: 4 Membrane Status: Intact Headache: Denies Datetime: 05/16/2024 01:30 MATERNAL ASSESSMENT Level of Consciousness: Alert Nausea/Vomiting: Denies Datetime: 05/16/2024 00:54 Membranes Rupture Method: Artificial Provider Reviewed Strip: Yes Datetime: 05/15/2024 22:19 Hygiene: Underpad Changed Datetime: 05/15/2024 21:00 DTR's/Clonus: DTRs 2+; No Clonus Datetime: 05/15/2024 19:15 Breath Sounds, Left: Clear and Equal Breath Sounds, Right: Clear and Equal RUQ Epigastric Pain: Denies TEACHING Instructional Method: Verbal; Patient Instructed Pain Management: Epidural Datetime: 05/15/2024 17:09 Cervical Ripening Agents: Cytotec @ Medication Comments: vaginal Datetime: 05/15/2024 16:57 Vaginal Exam Comments: Per MD, unable to reach cervix.
== END 2024-05-17 14:30 | disposition home or self-care (01) | DRG 807 ==
LOC: WFO 15:32 → FBP 15:34 → WFO 20:09
PROVIDERS: ADMIT Obstetrics & Gynecology; ATTEND Obstetrics & Gynecology
PROC: 3E033VJ Introduction of Other Hormone into Peripheral Vein, Percutaneous Approach (ICD-10-PCS; 2024-05-15)
PROC: 3E0DXGC Introduction of Other Therapeutic Substance into Mouth and Pharynx, External Approach (ICD-10-PCS; 2024-05-15)
PROC: 10E0XZZ Delivery of Products of Conception, External Approach (ICD-10-PCS; principal; 2024-05-16)
PROC: 10907ZC Drainage of Amniotic Fluid, Therapeutic from Products of Conception, Via Natural or Artificial Opening (ICD-10-PCS; 2024-05-16)
PROC: 4A1HXCZ Monitoring of Products of Conception, Cardiac Rate, External Approach (ICD-10-PCS; 2024-05-16)
DX: O99.824 Streptococcus B carrier state complicating childbirth (principal); Z37.0 Single live birth; Z3A.39 39 weeks gestation of pregnancy; O76 Abnormality in fetal heart rate and rhythm complicating labor and delivery
CPT/HCPCS: 59409; 85025; 86850; 86900; 86901; A9270; J2210; J7120